=== PATIENT | female | born 1935 | race Two or more races ===

== ENCOUNTER 2019-01-06 18:46 | Inpatient (IN) | payer OTHER ==
[~2019-01-06] VITALS: Ht 160 cm; Wt 73.9 kg
[2019-01-06] MEDS ORDERED: BLOOD SUGAR DIAGNOSTIC 1 EACH STRIP IN ONE (21:00)
[2019-01-06] MEDS ORDERED: MAGNESIUM HYDROXIDE 30 ML UDC PO PRN (21:00)
[2019-01-06] MEDS ORDERED: MAG HYDROX/AL HYDROX/SIMETH 30 ML UDC PO PRN (21:00)
[2019-01-06] MEDS ORDERED: ACETAMINOPHEN 325 MG TABLET PO PRN (21:00)
[2019-01-06] MEDS ORDERED: LORAZEPAM 0.5 MG TABLET PO PRN (21:00)
[2019-01-06] MEDS ORDERED: ZOLPIDEM TARTRATE 5 MG TABLET PO PRN (21:00)
[2019-01-07 01:13] VITALS: BP 145/70
[2019-01-07] MEDS ORDERED: AMLO5TAB4 PO (02:43)
[2019-01-07] MEDS ORDERED: ATEN25TA PO (02:43)
[2019-01-07] MEDS ORDERED: ASPI-1152 PO (02:43)
--- NOTE | 2019-01-07 02:49 | NUR ---
GPS ANATOMICAL EMBALMER NOTES: ADMITTED 83 Y/O FEMALE. PATIENT ADMITTED FROM [facility] TP GPS ON 5150. PATIENT ADMITTED TAKING "ALL THE PILLS" IN HER ZYPREXA BOTTLE. WHEN ASKED IN THE HOSPITAL IF IT WAS HER INTENT TO KILL HERSELF. PT RESPONDED, "I DON'T REMEMBER, I DON,T KNOW." UPON FACE TO FACE ASSESSMENT PT IS ALERT ORIENTED X2, CONFUSED, DEPRESSED, NEEDY, FLAT AFFECT, COOPERATIVE, AND DISORGANIZED. PT DENIES SI/HI AT THIS TIME.WHEN ASKED PT WHY SHE IS HERE PT SAID, "I DONT KNOW." PT IS HARD OF HEARING AND USES A HEARING AID ON HER RIGHT EAR. PT IS PUERTO RICAN SPEAKING BUT CAN UNDERSTAND AND SPEAK VINCENTIAN MINIMALLY. PT WALKS WITH UNSTEADY GAIT. PT REFUSED TO SIGN CONSENT PAPERS DUE TO STRESS. ENVIRONMENTAL SAFETY CHECK DONE Q15 MIN. ENCOURAGE PT VERBALIZE FEELINGS AND CONCERNS TO STAFF. ORIENTED TO THE UNIT. NURSING ASSESSMENT DONE. SKIN ASSESSMENT DONE. PICTURE TAKEN AND PLACED IN CHART. MRSA SWAB DONE. PT RIGHTS DISCUSS BY DEVELOPMENT EDITOR. PROVIDED HANDBOOK AND MED GUIDE. NO S/S OF RESP DISTRESS NOTED. CONTINUE TO MONITOR.
[2019-01-07 07:10] LABS: ALBUMIN 2.9 g/dL (3.4-5.0); BILIRUBIN,TOTAL 0.4 mg/dL (0.2-1.0); CALCIUM, SERUM 8.8 mg/dL (8.5-10.1); CREATININE 0.7 mg/dL (0.6-1.3); POTASSIUM 3.5 mmol/L (3.5-5.1)
[2019-01-07 08:00] VITALS: BP 144/76
[2019-01-07] MEDS: ASPIRIN EC 81 MG TABLET.DR PO SCH (09:21)
[2019-01-07] MEDS: ATENOLOL 25 MG TABLET PO SCH (09:22)
[2019-01-07] MEDS: AMLODIPINE BESYLATE 5 MG TABLET PO SCH (09:22)
--- NOTE | 2019-01-07 11:10 | NUR ---
DR. KESSLER GAVE AN ORDER TO [facility] SERVICE TO DR. MORALES AND DR. MORALES IS AWARE.
[2019-01-07 12:49] VITALS: BP 102/64
--- NOTE | 2019-01-07 14:43 | NUR ---
Roommate Contact: SW called the pts roommate, Adriano ([phone]), and received collateral information from him regarding the pts assessment. SW also went over the pts treatment plan and discharge plan and it was discussed that the pt would return to living with him in their apartment.
--- NOTE | 2019-01-07 15:39 | NUR ---
Initial Discharge Plan: Pt currently resides in an apartment located at [address] [place] [address], [address], [place] [address]; ([phone]) with her roommate, Adriano. Per pt, she would like to return to her apartment. HAMIDA spoke to the pts roommate, Adriano ([phone]), who stated that he will have her back. HAMIDA will work with the MD and the pt regarding appropriate discharge planning. SW will form a safe and proper discharge.
[2019-01-07 16:00] VITALS: BP 135/69
--- NOTE | 2019-01-07 19:14 | NUR ---
GPS RN NOTE PATIENT RECEIVED IN BED AND ALERT. NO S/S OF COMPLAINTS OF PAIN AT THIS TIME. PATIENT HAS NO PATIENT BREATHING EVEN AND UNALBORED. PATIENT ON ROOM AIR NO S/S OF RESP DISTRESS. PATIENT I SEMI COMPLIANT WITH MEDS. PATIENT UNABLE TO TRUST WHAT MEDICATIONS ARE BEING GIVEN TO HER. PER DAY SHIFT SHE WAS ONLY WILLING TO TAKE AN ASPIRIN. PATIENT DENIES SI/ HI. PATIENT ABLE TO TURN HERSELF INDEPENDENTLY IN BED. PATIENT A CURRENT FALL RSIK, FALL PRECAUTIONS IN PLCAE. BED IN LOWEST LOCKED POSITION. PATIENT GIVEN INSTRUCTIONS ON USE OF CALL LIGHT AT THIS TIME. RN WILL CONTINUE TO MONITOR Q1 WITH HELP OF SURROUNDING STAFF.
[2019-01-07 20:00] VITALS: BP 119/60
[2019-01-07 20:02] VITALS: BP 119/60
--- NOTE | 2019-01-07 21:37 | NUR ---
GPS RN NOTE PATIENT CONFUSED AND RESTLESS. PATIENT ATTEMPTING TO GET OUT OF BED EVEN THOUGH PATIENT IS FALL RISK. PATIENT PLACED IN GERICHAIR FOR CLOSER OBSERVATION AND PATIENT SAFETY.
[2019-01-07] MEDS: TRAZODONE 50 MG TABLET PO SCH (21:44)
[2019-01-07] MEDS ORDERED: OLANZAPINE 5 MG TABLET PO SCH (22:00)
[2019-01-08 08:00] VITALS: BP 142/73
[2019-01-08] MEDS: ASPIRIN EC 81 MG TABLET.DR PO SCH (08:24)
[2019-01-08] MEDS: AMLODIPINE BESYLATE 5 MG TABLET PO SCH (08:24)
[2019-01-08] MEDS: ATENOLOL 25 MG TABLET PO SCH (08:25)
[2019-01-08] MEDS: OLANZAPINE 5 MG TABLET PO SCH ×2 (08:32→21:11)
--- NOTE | 2019-01-08 10:30 | NUR ---
Substance Abuse Intervention: HAMIDA conducted a substance abuse intervention with the pt due to her overdosing on her prescription medications.
--- NOTE | 2019-01-08 12:27 | NUR ---
UR Note: SW called [employer] Concurrent Review Line ([phone]) and spoke to Marj. She redirected the SW to pts care process manager, Nellie Haas ([phone] ext [phone]). SW called and left a review on her voicemail requesting additional authorization.
--- NOTE | 2019-01-08 14:40 | NUR ---
UR Note: Nellie Haas ([phone] ext [phone]), [employer] medical case manager, called the SW and stated that the pt will be authorized until 01/11/19 with a review due on that day.
[2019-01-08 16:00] VITALS: BP 114/77
[2019-01-08 19:58] VITALS: BP_SYST 115; BP_SYST 147; BP_DIAS 62; BP_DIAS 79
[2019-01-08] MEDS: TRAZODONE 50 MG TABLET PO SCH (21:11)
[2019-01-09 08:00] VITALS: BP 134/71
[2019-01-09] MEDS: OLANZAPINE 5 MG TABLET PO SCH ×2 (08:25→21:06)
[2019-01-09] MEDS: ASPIRIN EC 81 MG TABLET.DR PO SCH (08:25)
[2019-01-09] MEDS: AMLODIPINE BESYLATE 5 MG TABLET PO SCH (08:25)
[2019-01-09] MEDS: ATENOLOL 25 MG TABLET PO SCH (08:25)
[2019-01-09 16:00] VITALS: BP 138/79
--- NOTE | 2019-01-09 19:17 | NUR ---
GPS/RN-NOTES PATIENT X1 HEARING AID IN THE UNIT STATION FOR CHARGING AND X1 WITH PATIENT. ENDORSED TO NIGHT NURSE FOR CONTINUITY OF CARE.
[2019-01-09 20:18] VITALS: BP 111/59
[2019-01-09] MEDS: TRAZODONE 50 MG TABLET PO SCH (21:06)
[2019-01-10 08:00] VITALS: BP 122/71
[2019-01-10] MEDS: ATENOLOL 25 MG TABLET PO SCH (08:05)
[2019-01-10] MEDS: AMLODIPINE BESYLATE 5 MG TABLET PO SCH (08:05)
[2019-01-10] MEDS: OLANZAPINE 5 MG TABLET PO SCH ×2 (08:05→21:43)
[2019-01-10] MEDS: ASPIRIN EC 81 MG TABLET.DR PO SCH (08:05)
[2019-01-10 16:00] VITALS: BP 116/63
[2019-01-10 21:41] VITALS: BP 124/59
[2019-01-10] MEDS: TRAZODONE 50 MG TABLET PO SCH (21:43)
--- NOTE | 2019-01-10 22:50 | NUR ---
GPS RN NOTES: NOTIFIED PT REGARDING WEEKLY SKIN ASSESSMENT. PATIENT ALLOWED FOR PICTURE TAKEN ON BOTH ELBOWS OF HER BODY BUT REFUSED PICTURE TO BE TAKEN ON OTHER PARTS OF HER BODY. EXPLAINED RISKS AND BENEFITS X3 STILL REFUSED CONTINUE TO MONITOR.
[2019-01-11 08:00] VITALS: BP 108/63
[2019-01-11] MEDS: AMLODIPINE BESYLATE 5 MG TABLET PO SCH (08:14)
[2019-01-11] MEDS: ASPIRIN EC 81 MG TABLET.DR PO SCH (08:14)
[2019-01-11] MEDS: OLANZAPINE 5 MG TABLET PO SCH ×2 (08:14→21:10)
[2019-01-11] MEDS: ATENOLOL 25 MG TABLET PO SCH (08:14)
--- NOTE | 2019-01-11 14:03 | NUR ---
UR Note: HAMIDA called Nellie Haas ([phone]), [employer] briefcase sewer, and left a clinical on her voicemail.
[2019-01-11 16:00] VITALS: BP 121/58
--- NOTE | 2019-01-11 16:21 | NUR ---
RN NOTE: PATIENT C/O HEARTBURN. PRN MAALOX GIVEN.
--- NOTE | 2019-01-11 18:42 | NUR ---
SUPERVISOR ASPHALT PAVING NOTE: PATIENT IS A 83 YEAR OLD FEMALE DISCHARGED TO [address] [facility] [id number] . PATIENT IS IN STABLE CONDITION. VSS. NO ACUTE DISTRESS NOTED. NO COMPLAINTS. COMPLIANT WITH MEDICATION MANAGEMENT. COOPERATIVE WITH PLAN OF CARE. PSYCHIATRIC TREATMENT PLANS MET. MEDICAL TREATMENT PLANS DEFERRED FOR CONTINUAL MONITORING. DENIES SI/HI VAH AT THE TIME OF DISCHARGE. SKIN CHECK DONE WITH WOUND PICTURES IN CHART. EDUCATED PATIENT ABOUT AFTERCARE WITH COPY PROVIDED. RETURNED PERSONAL BELONGINGS TO PATIENT. MEDICATIONS RECONCILED WITH DR OWENS AND DR BERUMEN ALONG WITH PSYCHIATRIC DISCHARGE ORDERS. DISCHARGE PAPERWORK SIGNED. FOR FOLLOW UP WITH PSYCHIATRIST DR OWENS [address] [facility] [address] [facility] [id number] AND [address] VILLATORO [address] [facility] [address] [facility] [id number] WITHIN 1 WEEK. PATIENT LEFT THE [facility] GPS VIA AMBULANCE AT 1830 ACCOMPANIED BY DAUGHTER.
[2019-01-11 20:41] VITALS: BP 118/72
[2019-01-11] MEDS: TRAZODONE 50 MG TABLET PO SCH (21:12)
[2019-01-12 08:00] VITALS: BP 145/93
--- NOTE | 2019-01-12 08:10 | NUR ---
Roommate Contact: HAMIDA called the pts roommate, Adriano ([phone]), and informed him that the pt is going to be discharged today. He stated that he would come pick her up around 1pm.
[2019-01-12] MEDS: OLANZAPINE 5 MG TABLET PO SCH (08:58)
[2019-01-12] MEDS: AMLODIPINE BESYLATE 5 MG TABLET PO SCH (08:58)
[2019-01-12 08:59] VITALS: BP 145/93
[2019-01-12] MEDS: ATENOLOL 25 MG TABLET PO SCH (08:59)
[2019-01-12] MEDS: ASPIRIN EC 81 MG TABLET.DR PO SCH (08:59)
--- NOTE | 2019-01-12 13:29 | NUR ---
SALVAGE CLERK NOTE: PATIENT IS A 83 YEAR OLD FEMALE DISCHARGED TO HOME LOCATED AT [address] [facility] [address] [place] [phone] . PATIENT IS IN STABLE CONDITION. VSS. NO ACUTE DISTRESS NOTED. NO COMPLAINTS. COMPLIANT WITH MEDICATION MANAGEMENT. COOPERATIVE WITH PLAN OF CARE. PSYCHIATRIC TREATMENT PLANS MET. MEDICAL TREATMENT PLANS DEFERRED FOR CONTINUAL MONITORING. DENIES SI/HI VAH AT THE TIME OF DISCHARGE. SKIN CHECK DONE, SKIN INTACT. EDUCATED PATIENT ABOUT AFTERCARE WITH COPY PROVIDED. RETURNED PERSONAL BELONGINGS TO PATIENT. MEDICATIONS RECONCILED WITH DR GIRARD AND DR ISLAS ALONG WITH PSYCHIATRIC DISCHARGE ORDERS. PATIENT UNABLE TO SIGN DISCHARGE PAPERWORK DUE TO UPPER EXTREMITY WEAKNESS; CO-SIGNED WITH RN. FOR FOLLOW UP WITH PSYCHIATRIST DR FRANK [id number] [facility] [address] [facility] [address] [address] ROSALES [address] [facility] [address] [facility] [id number] . PATIENT LEFT THE [facility] GPS WITH GREGORY (ROOMMATE) VIA PRIVATE TRANSPORTATION AT 1310.
--- NOTE | 2019-01-12 16:19 | NUR ---
UR Note: HAMIDA called Nellie Haas ([phone]), [employer] case management coordinator, and left a discharge clinical on her voicemail.
--- NOTE | 2019-01-12 16:19 | NUR ---
Discharge Note: Pt was discharged back to her home located at [address] [place] [address], [address], [place] [address]; ([phone]). Pts roommate, Adriano ([phone]), picked the pt up at 1pm. Upon discharge, the pt appeared to be in a euthymic mood and presented with a distressed affect. Pt denied both suicidal and homicidal ideation as well as auditory and visual hallucinations. Pt was given substance abuse referrals upon discharge. Pt will be under the care of her psychiatrist, Dr. Bonilla, located at [id number] [facility] [address] [address]; ; fax of records was sent to: . Pt has an appointment set up on 01/27/19 at 11am. Pt will also be under the care of her psychiatrist, Dr. Escalera, located at [address] [facility] [address], [place] [address]; .
== END 2019-01-12 13:10 | disposition home or self-care (01) | DRG 881 ==
LOC: GPS 20:36
PROVIDERS: ADMIT Psychiatry & Neurology Psychiatry; ATTEND Internal Medicine
DX: F32.9 Major depressive disorder, single episode, unspecified (principal); E44.0 Moderate protein-calorie malnutrition; R45.851 Suicidal ideations; F29 Unspecified psychosis not due to a substance or known physiological condition; F41.9 Anxiety disorder, unspecified; E78.5 Hyperlipidemia, unspecified; I10 Essential (primary) hypertension; I25.10 Atherosclerotic heart disease of native coronary artery without angina pectoris; H91.90 Unspecified hearing loss, unspecified ear
CPT/HCPCS: 36415; 80053-TC; 80061-TC; 82962-TC; 87081-TC; 97110-TC; 97116-TC; 97530-TC